=== PATIENT | male | born 1950 | race Caucasian/White ===

== ENCOUNTER 2019-06-25 06:08 | Day surgery (SDC) | payer BC, OTHER ==
[~2019-06-25] VITALS: Ht 160 cm; Wt 72.6 kg
--- NOTE | ~2019-06-25 | O ---
[facility] [address] [place] [facility] [place] [address] OPERATIVE REPORT Name: FARRUKH CASEY Room #: 150-2 [facility]#: [id number] Admission: 06/25/19 Attend Phys: Samy Louise MD Discharge: Date of : 48 Report #: [id number] THIS REPORT FOR: cc: Gamal Jeronimo MD, Cabot L. MD White, William L. MD ~ CC: Gamal BA Samy Louise DATE OF SERVICE: 06/25/2019 TOUR OPERATOR: None. PREOPERATIVE DIAGNOSIS: Bilateral upper lid ptosis with superior visual field defects both eyes. POSTOPERATIVE DIAGNOSIS: Bilateral upper lid ptosis with superior visual field defects both eyes. OPERATION PERFORMED: Bilateral upper lid functional ptosis repair. TOUR OPERATOR: None. ANESTHESIA: Local with IV sedation. COMPLICATIONS: None. INDICATIONS FOR PROCEDURE: This patient has bilateral upper lid ptosis with superior visual field loss both eyes. Visual field testing demonstrates dense superior visual defects. Retesting with the upper lid elevated shows an improvement in visual field loss of over 30% and in excess of 12 degrees. The current procedure is being undertaken in order to improve the patient's visual function. Informed consent was obtained to include but not limited to the risk of loss of vision, bleeding, infection, scarring, failure to improve the problem and need for further surgery, such as adjustment of lid height. DESCRIPTION OF PROCEDURE: The patient was taken to the operating room, where 2% Xylocaine with epinephrine mixed with equal parts of 0.75% Marcaine with Wydase was administered transcutaneously to each upper lid. The patient was then prepped and draped in the usual sterile fashion. An upper lid crease incision was then made bilaterally and the dissection was [facility] [address] [place] [address] OPERATIVE REPORT Name: FARRUKH CASEY Room #: 150-2 [facility].#: [id number] Admission: 06/25/19 Attend Phys: Samy Louise MD Discharge: Date of : 48 Report #: [id number] carried down until the orbital septum was identified. The orbital septum was then cleared and the preaponeurotic fat identified. The levator aponeurosis was then disinserted from the anterior surface of the tarsal plate and dissected free in the avascular Niño's muscle plane. The aponeurosis was then advanced and reattached to the anterior surface of the tarsal plate with interrupted mattress 6-0 Novafil sutures on each side, adjusting for height and contour. The redundant aponeurosis was then amputated. The incision was then closed with multiple interrupted 6-0 chromic sutures that were used to recreate an upper lid crease. The skin was closed with a running 6-0 plain gut suture. The wound was then cleaned and dressed with ophthalmic antibiotic ointment followed by a Telfa pad. The patient was transported to the recovery area, having tolerated the procedure well with no anesthesia or operative complications being noted. By: Rylan: 06/25/19 0901 Samy Louise MD /nt
[~2019-06-25 06:08] MED LIST: ALBUTEROL2.5 MG/3 M INH; ASA81BEC PO; ATORVASTATIN CA80 MG PO; BACLOFEN 10MG T10 MG PO; CARAFATE 1 GM TA1 G1 PO; CARVEDILOL25 MG PO; FLOVENT DISKU100 MCG INH; FUROSEMIDE 40 M40 MG PO; LISINOPRIL10 MG PO; MELOXICAM15 MG PO; PANTOPRAZOLE SO40 M1 PO; PROAIR HFA8.5 GM INH; STIOLTO RESPIMAT4 GM INH; TAMSULOSIN HCL0.4 MG PO
[2019-06-25 08:15] VITALS: BP 109/63
== END 2019-06-25 09:50 | disposition home or self-care (01) ==
LOC: OR 06:08 → TBA 06:29 → OR 09:50
DX: H02.413 Mechanical ptosis of bilateral eyelids (principal); H53.462 Homonymous bilateral field defects, left side; H53.461 Homonymous bilateral field defects, right side; I10 Essential (primary) hypertension; E78.5 Hyperlipidemia, unspecified; K21.9 Gastro-esophageal reflux disease without esophagitis; J43.9 Emphysema, unspecified; Z98.890 Other specified postprocedural states; Z79.899 Other long term (current) drug therapy; Z98.41 Cataract extraction status, right eye; Z87.891 Personal history of nicotine dependence; Z98.42 Cataract extraction status, left eye; Z95.810 Presence of automatic (implantable) cardiac defibrillator
CPT/HCPCS: 50010; 50101; 50386; 50398; 51636; 56531; 62110; 62850; 70005